=== PATIENT | female | born 1960 | race Caucasian/White ===

== ENCOUNTER 2016-08-26 07:13 | Day surgery (SDC) | payer BC ==
[~2016-08-26] VITALS: Ht 167.6 cm; Wt 67.0 kg
--- NOTE | 2016-09-13 12:20 | OR ---
ADMIT: 08/26/2016 RM/LOC: [facility] MR#: [id number] [address] [id number] HENRI FRANNY Raimundo [address] [place] [address] Operative/Delivery Room Report SEX: F AGE: 56 : 1960 SURGERY DATE: 08/26/2016 SURGEON: Darion Hurtado MD PREOPERATIVE DIAGNOSES: Left breast cancer in about the 3 o'clock position of the left breast below the areola and nipple complex. PROCEDURES: 1. Injection of Lymphazurin for identification of left axillary sentinel node and actually sent 2 different nodes and there may be another one in the one specimen. 2. Needle localizing lumpectomy. Wire is coming up completely lateral, the double stitch is anteriorly taken right from the nipple-areolar area where all the blue dye is. CONSTRUCTION DIRECTOR: WALT Cramer who was necessary for adequate exposure, retraction, and completion of this case. ANESTHESIA: General. ESTIMATED BLOOD LOSS: 15 mL or less. INDICATION FOR PROCEDURE: Please see H and P. PROCEDURE IN DETAIL: After the risks, benefits, possible complications, and alternatives had been explained, and informed consent had been obtained, the patient was taken back to the operating room, underwent general anesthesia. She had already been over to Radiology to have a radio-labeled tracer as well as a wire localization done in the left breast. I came in and injected the Lymphazurin in the periareolar region from about 1 o'clock to the 3 o'clock position, massaged for 3 minutes, and everything was sterilely prepped and draped. I then went and scrubbed, identified a hot area in the left axilla. I made an incision down the skin, subcutaneous tissue, and actually followed great lymphatics right down into this lymph node, hot and blue. There was a count on it of 10,700 and some. Then a little further down into the axilla, there was still pretty good signal and so as I dissected that, there was another nice blue lymph node and that had a signal of about 2200 so I ultimately took both. I sent the hotter one obviously as sentinel node #1 and there may be an extra lymph node or so in there and then a smaller lymph node was sentinel lymph node #2. Irrigated that with sterile water, maintained hemostasis, closed with 3-0 Vicryl and 4-0 Monocryl. I then made an incision around the areola of the left breast laterally down the skin and subcutaneous ADMIT: 08/26/2016 RM/LOC: [facility] MR#: [id number] [id number] [place] [id number] [place] [address] [place] [address] Operative/Delivery Room Report SEX: F AGE: 56 : 1960 tissue, dissected down and brought the wire through from the breast laterally. Dissected then medially and used the knife to basically clear everything off the areola nipple area and complex and then dissected down to the pectoralis fascia and around on both sides superiorly, inferiorly and actually at one spot, removed just a little fascia and muscle below it. I felt I got around it as adequate as I could on right at the skin and areolar complex. I cannot get any higher without taking all the skin and cannot get any deeper without taking more muscle. That was sent to Radiology. Irrigated out with sterile water, maintained hemostasis. Closed with 3-0 Vicryl and 4-0 Monocryl. In the process of closing, Radiology called the specimen was good. She tolerated it well. She was extubated and taken to recovery room in stable and satisfactory condition. Darion Hurtado MD/ max JOB #: [id number] CC: Darion Hurtado, Attending Physician Luciano Mcneill, Family Physician
== END 2016-08-26 13:55 | disposition home or self-care (01) ==
LOC: SSS 07:13
PROC: 0HBU0ZZ Excision of Left Breast, Open Approach (ICD-10-PCS; principal; 2016-08-26)
PROC: 07B60ZX Excision of Left Axillary Lymphatic, Open Approach, Diagnostic (ICD-10-PCS; principal; 2016-08-26)
DX: C50.412 Malignant neoplasm of upper-outer quadrant of left female breast (principal); Z98.890 Other specified postprocedural states; Z79.899 Other long term (current) drug therapy